=== PATIENT | male | born 1955 | race Caucasian/White ===

== ENCOUNTER 2017-08-03 05:31 | Day surgery (SDC) | payer BC ==
[2017-08-03] MEDS ORDERED: DIPRIVAN 200 MG/20 ML IV ONE (05:32)
[2017-08-03] MEDS ORDERED: Ketamine HCl 50 MG/ML IV ONE (05:32)
[2017-08-03] MEDS ORDERED: Lactated Ringers 1,000 ML IV SCH (07:00)
--- NOTE | 2017-08-03 08:29 | OP ---
SURGERY DATE/TIME: 08/03/2017 0746 PREOPERATIVE DIAGNOSIS: Screening exam. POSTOPERATIVE DIAGNOSIS: Normal colon. PROCEDURE: Colonoscopy. SURGEON: Dr. Edgar. ANESTHESIA: Medications were given by the anesthesia department. HISTORY: The patient is a 62 year old white male patient presenting now for colonoscopic evaluation. He reports he did have colon exam several years ago which was normal. The patient is having no problems presently. The patient was appraised of the risks of the procedure including the risk of perforation, phlebitis, untoward reaction to medication, bleeding or missed lesions. The patient verbalized his understanding and desired to have the procedure performed. DESCRIPTION OF PROCEDURE: The patient was given the medications by the anesthesia department. He had continuous pulse oximetry, ECG monitoring, intermittent blood pressure monitoring and tidal CO2 monitoring during the examination. He was placed in left lateral decubitus position. A digital rectal examination was performed and revealed normal anal sphincter tone and no masses and normal prostate. The flexible Olympus pediatric colonoscope was used to intubate the rectum. A view of the colon was developed sequentially to the cecum. Upon insertion and withdrawal, including a retroflex view in the rectum, was noted a single diverticulum but otherwise no mucosal lesions otherwise were noted. The scope was removed from the patient who tolerated the procedure well and was sent back to OP recovery in good condition. The prep was noted to be good.
[2017-08-03 09:07] VITALS: O2SAT 95
[2017-08-03 09:32] VITALS: BP 124/72; PULSE 77
== END 2017-08-03 09:30 | disposition home or self-care (01) ==
LOC: SDC 05:31
PROVIDERS: ATTEND Family Medicine
PROC: 0DJD8ZZ Inspection of Lower Intestinal Tract, Via Natural or Artificial Opening Endoscopic (ICD-10-PCS; principal; 2017-08-03)
DX: Z12.11 Encounter for screening for malignant neoplasm of colon (principal)
CPT/HCPCS: 00810; J2704